=== PATIENT | male | born 1960 | race Asian ===

== ENCOUNTER 2019-07-30 08:50 | Day surgery (SDC) | payer OTHER, SELFPAY ==
[~2019-07-30] VITALS: Ht 177.8 cm; Wt 68.0 kg
[2019-07-30] MEDS ORDERED: LIDOCAINE 2% 100 MG/5 ML UJET TP ONE (09:55)
[2019-07-30] MEDS ORDERED: fentaNYL 0.05 MG/ML VIAL ONE (09:55)
[2019-07-30] MEDS ORDERED: fentaNYL 0.05 MG/ML VIAL IVP ONE (12:40)
== END 2019-07-30 11:12 | disposition home or self-care (01) ==
LOC: MDS 08:50 → MMU 08:52 → MDS 11:12
PROVIDERS: ATTEND Internal Medicine Gastroenterology
DX: Z12.11 Encounter for screening for malignant neoplasm of colon (principal); D12.3 Benign neoplasm of transverse colon; Z90.49 Acquired absence of other specified parts of digestive tract; Z87.891 Personal history of nicotine dependence; Z79.899 Other long term (current) drug therapy
CPT/HCPCS: 45385; J3010